=== PATIENT | male | born 1960 | race Caucasian/White ===

== ENCOUNTER 2018-02-24 09:46 | Emergency (ER) | payer OTHER ==
[2018-02-24] MEDS: LIDOCAINE 2% (MDV) 20 ML INJ INJ (11:43)
== END 2018-02-24 13:50 | disposition home or self-care (01) ==
LOC: FTE 09:46
DX: S61.511A Laceration without foreign body of right wrist, initial encounter (principal); W26.8XXA Contact with other sharp object(s), not elsewhere classified, initial encounter; Y92.9 Unspecified place or not applicable; Z87.891 Personal history of nicotine dependence
CPT/HCPCS: 12002; 99283-25

== ENCOUNTER 2018-02-26 10:59 | Emergency (ER) | payer OTHER | END 2018-02-26 11:32 | disposition home or self-care (01) | LOC: FTE 10:59 | DX: Z48.01 Encounter for change or removal of surgical wound dressing (principal) | CPT/HCPCS: 99281 ==

== ENCOUNTER 2018-03-05 09:17 | Emergency (ER) | payer OTHER | END 2018-03-05 10:39 | disposition home or self-care (01) | LOC: FTE 09:17 | DX: Z48.01 Encounter for change or removal of surgical wound dressing (principal); Z87.891 Personal history of nicotine dependence | CPT/HCPCS: 99283 ==

== ENCOUNTER 2018-03-08 16:54 | Emergency (ER) | payer OTHER | END 2018-03-08 18:16 | disposition home or self-care (01) | LOC: E/R 16:54 | DX: Z48.02 Encounter for removal of sutures (principal) | CPT/HCPCS: 99281; Z7502 ==